=== PATIENT | female | born 2000 | race Caucasian/White ===

== ENCOUNTER 2022-05-22 12:07 | Observation (INO) ==
[2022-05-22] MEDS ORDERED: SODIUM CHLORIDE 0.9% 1000ML 1,000 ML IV ONE (12:37)
[2022-05-22] MEDS ORDERED: HYDROmorphone INJ 1 MG/ML SYRINGE IV STA (12:40)
--- NOTE | 2022-05-22 13:00 | Emergency Department Note ---
History of Present Illness General Chief complaint: Flank Pain Stated complaint: R SIDE KIDNEY PAIN/HERE ON THE WORSE Time Seen by Provider: 05/22/22 12:22 History of Present Illness Maximum Pain Intensity: 5 This is a 22-year-old female with a history of anxiety, endometriosis, kidney stones, recently diagnosed with a 3 mm obstructing stone at the right UVJ on 05/15/2022 presents with ongoing flank pain, nausea, and vomiting. Her pain continues to be located in the right flank area and now will sometimes radiate down around into her groin but most of the time it stays at the right flank. She has been taking oxycodone and Zofran as prescribed but cannot make it through a shift at work because the pain becomes too severe that she begins vomiting from the pain so she has to leave so she can take an oxycodone. She is trying to take Tylenol and ibuprofen at work. She does not feel the oxycodone makes her nauseous and vomit. Sometimes she feels so ill that she might pass out. She has dysuria now, and also describes some thick white discharge similar to yeast infections that she has had in the past. She has been taking the cefdinir as prescribed. She is feeling very anxious and upset because her symptoms have been ongoing for so long. She was unable to schedule an appointment with urology since being diagnosed with the stone. She has an appointment scheduled with her primary care provider 2 days from now, but has not followed up with them yet. She denies any fevers, chills, body aches, cough, shortness of breath, chest pain, hematuria. Home Medications Medication Instructions Recorded Confirmed Type medroxyprogesterone 150 mg/mL 150 mg IM UD #1 ml 06/11/21 05/22/22 Rx intramuscular suspension (Depo-Provera) cefdinir 300 mg capsule 300 mg PO BID 10 Days #20 cap 05/15/22 05/22/22 Rx ondansetron 4 mg disintegrating 4 mg PO Q4H PRN #8 tab 05/15/22 05/22/22 Rx tablet oxycodone 5 mg tablet 5 - 10 mg PO Q4H PRN #14 tab 05/15/22 05/22/22 Rx aripiprazole 5 mg tablet 5 mg PO QAM 05/22/22 05/22/22 History venlafaxine 150 mg 150 mg PO QAM 05/22/22 05/22/22 History capsule,extended release 24 hr Allergies Allergy/AdvReac Type Severity Reaction Status Date / Time latex Allergy Unknown TONGUE Verified 04/27/21 14:22 SWELLING Past Med/Surg History Medical History Adjustment disorder Anxiety Asthma WELL CONTROLLED Depression Endometriosis Endometriosis History of anesthesia reaction HX ASTHMA ATTACKS COMING OUT OF ANESTHESIA Nausea and vomiting after administration of anesthetic agent Recurrent streptococcal tonsillitis Scoliosis Tonsillith Surgical History History of adenoidectomy 2006 History of colonoscopy History of endoscopy History of laparoscopy FOR ENDOMETRIOSIS History of tonsillectomy 06/12/20 - Dr. Idris Ward Status post wisdom tooth extraction 2019 Family History Father Hypertension Allergies Asthma Anxiety Depression Grandfather (Paternal) Myocardial infarction Mother Anxiety Sister Anxiety Brother Anxiety Denies family history of Ovarian cancer Prostate cancer Breast cancer Colorectal cancer Social History Smoking Status: Never smoker Second Hand Exposure: No; Hx Alcohol Use: Yes Alcohol type: wine Alcohol Intake Frequency: 4 or More x per/Week Alcohol Intake Frequency Comment: socially - 1-2 nights per week Hx Substance Use: No Preferred Language: [place] Communication Ability: Effective Tumbler Operator Required: No Beliefs That Will Affect Care: None marital status: Single Current Living Situation: Alone current occupational status: employed 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 and A total of 10 systems reviewed and were otherwise negative Physical Exam Vital Signs Vital Signs - 24 hr 05/22/22 12:09 05/22/22 13:11 05/22/22 13:12 Temperature 98.2 F Temperature Source Temporal Artery Scan Pulse Rate 131 H Pulse Rate [Right Finger] 112 H Respiratory Rate 18 20 Respiratory Effort / Characteristics Non-Labored Respiratory Depth Normal Blood Pressure 98/63 L Blood Pressure [Right Arm] 100/68 Blood Pressure Mean 74 Blood Pressure Mean [Right Arm] 78 Pulse Oximetry 99 100 100 Oxygen Delivery Method Room Air Room Air Room Air Sepsis Recent Fever Within 48 Hours No Sepsis New/Unexplained Change in Mental Status No Sepsis Action Taken by Nursing No Action Required CONSTITUTIONAL: Well developed, well nourished, appears in pain, tearful HEAD: Normocephalic, atraumatic. EYES: conjunctivae normal, extraocular muscles intact. ENMT: External ears normal. Nose with normal external appearance, no congestion. Oral mucous membranes dry. Oropharynx normal. NECK: Full active range of motion. RESPIRATORY: Breathing unlabored and symmetric. Lungs clear to auscultation bilaterally. No wheeze, rales, or rhonchi. CARDIOVASCULAR: tachycardic rate and regular rhythm. No murmurs, rubs, or gallops. ABDOMEN: Normal bowel sounds. Soft, nontender, no peritonitis. No masses. R CVA tenderness is present. MUSCULOSKELETAL: Moves all extremities at all joints without pain or difficulty. No cyanosis or edema. Back with full range of motion. SKIN: [place], warm, dry. No rash. NEUROLOGIC: Alert and oriented x 3. No acute motor or sensory deficits. Cranial nerves grossly intact. PSYCHIATRIC: Anxious, tearful, otherwise appropriate. Course Administered Medications Cefdinir (Cefdinir 300 Mg Cap) 300 mg PO BID [facility] Stop: 06/01/22 20:59 Last Admin: 05/22/22 20:10 Dose: 300 mg Documented by: [id number] Sodium Chloride (Nss 1000ml) 1,000 mls @ 80 mls/hr IV .[id number] [facility] Stop: 06/21/22 18:37 Last Admin: 05/22/22 18:51 Dose: 80 mls/hr Documented by: [id number] Ketorolac Tromethamine (Ketorolac Tromethamine 15 Mg/Ml Vial) 15 mg IV Q6H PRN PRN Reason: Moderate Pain Stop: 05/27/22 18:37 Last Admin: 05/22/22 18:51 Dose: 15 mg Documented by: [id number] Ondansetron HCl (Ondansetron Inj 2 Mg/Ml 2 Ml Vial) 4 mg IV NOW PRN PRN Reason: Nausea Stop: 06/21/22 12:36 Last Admin: 05/22/22 18:14 Dose: 4 mg Documented by: [id number] Admin: 05/22/22 13:19 Dose: 4 mg Documented by: [id number] Tamsulosin HCl (Tamsulosin Hcl 0.4 Mg Cap) 0.4 mg PO HS [facility] Stop: 06/21/22 20:59 Last Admin: 05/22/22 20:10 Dose: 0.4 mg Documented by: [id number] Discontinued Medications Hydromorphone HCl (Hydromorphone Inj 1 Mg/Ml Syringe) 1 mg IV NOW STA Stop: 05/22/22 12:41 Last Admin: 05/22/22 13:19 Dose: 1 mg Documented by: [id number] Sodium Chloride (Nss 1000ml) 1,000 mls @ 999 mls/hr IV .Q1H1M ONE Stop: 05/22/22 13:37 Last Infusion: 05/22/22 15:07 Dose: 0 mls/hr Documented by: [id number] Admin: 05/22/22 13:23 Dose: 999 mls/hr Documented by: [id number] Metoclopramide HCl (Metoclopramide Hcl Inj 5 Mg/Ml 2 Ml Vial) 5 mg IV ONE ONE Stop: 05/22/22 15:11 Last Admin: 05/22/22 15:19 Dose: 5 mg Documented by: [id number] Sumatriptan Succinate (Sumatriptan Succinate 50 Mg Tab) 50 mg PO NOW STA Stop: 05/22/22 17:11 Last Admin: 05/22/22 18:35 Dose: 50 mg Documented by: [id number] Medical Decision Making Differential Diagnosis Renal colic, pyelonephritis, UTI, yeast infection, urologic abnormality, intra- abdominal pathology, among other pathology Medical Records Attestation: I reviewed the patient's medical records. Laboratory Data Result diagrams: 05/22/22 13:13 05/22/22 13:13 Lab Results 05/22/22 05/22/22 05/22/22 Range/Units 13:13 13:13 14:59 WBC 4.95 (4.8-10.8) K/uL RBC 4.57 (4.2-5.4) M/uL Hgb 13.7 (12.0-16.0) g/dL Hct 40.2 (37-47) % MCV 88.0 (80-100) fL MCH 30.0 (25-34) pg MCHC 34.1 (32-36) g/dL RDW Std Deviation 38.8 (36.4-46.3) fL RDW Coeff of Emiliano 12.2 (11.5-14.5) % Plt Count 229 (130-400) K/uL MPV 10.4 (7.4-10.4) fL Immature Gran % (Auto) 0.2 % Neut % (Auto) 84.0 % Lymph % (Auto) 8.3 % [place] % (Auto) 7.1 % Eos % (Auto) 0.2 % Baso % (Auto) 0.2 % Neut # (Auto) 4.16 (1.4-6.5) K/uL Lymph # (Auto) 0.41 L (1.2-3.4) K/uL [place] # (Auto) 0.35 (0.11-0.59) K/uL Eos # (Auto) 0.01 (0-0.5) K/uL Baso # (Auto) 0.01 (0-0.2) K/uL Immature Gran # (Auto) 0.01 (0.00-0.02) K/uL Sodium 138 (136-145) mmol/L Potassium 3.6 (3.5-5.1) mmol/L Chloride 107 (98-107) mmol/L Carbon Dioxide 23 (21-32) mmol/L Anion Gap 8 (3-11) BUN 14 (6-23) mg/dl Creatinine 0.80 (0.6-1.2) mg/dl Est Cr Clr Drug Dosing 102.4 ml/min Est GFR ( Amer) 120.4 ml/min Est GFR (Non-Af Amer) 103.9 ml/min BUN/Creatinine Ratio 17.5 (10-20) Glucose 105 H (70-99(Fasting)) mg/dl Calcium 9.7 (8.5-10.1) mg/dl Total Bilirubin 0.6 (0.2-1.0) mg/dl AST 15 (13-39) U/L ALT 20 (7-52) U/L Alkaline Phosphatase 46 (34-104) U/L Total Protein 7.6 (6.0-8.3) gm/dl Albumin 4.6 (3.4-5.0) gm/dl Globulin 3.0 (2.5-4.0) gm/dl Albumin/Globulin Ratio 1.5 (0.9-2) Urine Color Yellow Urine Appearance Cloudy A (Clear) Urine pH 7.5 (4.5-7.5) Ur Specific [place] 1.015 (1.000-1.030) Urine Protein Negative (Negative) Urine Glucose (UA) Negative (Negative) Urine Ketones Trace H (Negative) Urine Blood Negative (Negative) Urine Nitrite Negative (Negative) Urine Bilirubin Negative (Negative) Urine Urobilinogen Negative (Negative) Ur Leukocyte Esterase 3+ H (Negative) Urine WBC (Auto) >30 H (0-5) /hpf Urine RBC (Auto) 0-4 (0-4) /hpf U Hyaline Cast (Auto) 1-5 (0-5) /lpf U Epithel Cells (Auto) >30 H (0-5) /lpf Urine Bacteria (Auto) 1+ H (Negative) Imaging Data Radiologist's Impression: KUB X-Ray 05/22/22 12:40 KUB CLINICAL HISTORY: hx 3mm stone R UVJ, ongoing pain COMPARISON STUDY: CT of the abdomen and pelvis 05/15/2022. FINDINGS: There is possible visualization of the 3 mm distal right ureteral calculus. Evaluation is difficult given overlying stool. No additional urinary calculi are present. Bowel gas pattern is normal. No evidence for a bowel obstruction. IMPRESSION: Possible visualization of the 3 mm distal right ureteral calculus. ACT 112: Negative or not required by law. Electronically signed by: Sergio Burnett M.D. 05/22/2022 1:29 PM Renal Ultrasound 05/22/22 12:40 RENAL ULTRASOUND CLINICAL HISTORY: 3mm stone R UVJ, ongoing pain COMPARISON STUDY: CT of the abdomen and pelvis May 15, 2022. KUB performed earlier today. TECHNIQUE: Sonography of the kidneys and the urinary bladder was performed. FINDINGS: Right kidney measures 11.8 cm in maximal dimension and the left measures 11.5 cm. Renal echogenicity, size and cortical thickness are normal. There is no hydronephrosis. No renal calculi are identified. Note is made of a 3 mm distal right ureteral calculus, as shown on prior CT and KUB. Ureteral jets were not visualized. IMPRESSION: 1. No hydronephrosis. 2. 3 mm distal right ureteral calculus. ACT 112: Negative or not required by law. Electronically signed by: Sergio Burnett M.D. 05/22/2022 2:44 PM MDM Narrative This is a 22-year-old female who returns to the emergency department with unco ntrolled right flank pain with associated nausea and vomiting secondary to a 3 mm obstructing stone diagnosed at the UVJ on 05/15/2022. On exam she is tachycardic and slightly hypotensive at 131 and 98/63 respectively. She is quite uncomfortable, tearful, anxious although is conversational and quite reasonable. She is afebrile. She persists with right CVA tenderness, although no abdominal tenderness is appreciated. It also sounds like she may have developed a yeast infection secondary to the c efdinir that she has been taking. Urine culture grew out lactobacillus so this is likely contamination. Will repeat labs and urinalysis, get pain under control, and obtain a KUB and ultrasound. Leukocytosis has improved to 4.95 from 11.84 from 1 week ago. Renal function is normal. Low suspicion that urine is infected. COVID-19 was found to be positive at time of admission. This may also be con tributing to the patient's symptoms of feeling so terribly. Her KUB and ultrasound are consistent with a persistent stone at the right UVJ. Case was discussed with Dr. Boyle who requests that the patient be admitted under medicine and they will manage the stone. He recommends continuing antibio tics. Case was discussed with Dr. Scales who agrees to admit the patient to medicine. Impression & Plan Calculus of distal right ureter, Nausea & vomiting, Uncontrolled pain, COVID-19 Discharge Plan Visit Data Chief Complaint: Flank Pain Stated Complaint: R SIDE KIDNEY PAIN/HERE ON THE WORSE ED Provider: Mega Darling ED Midlevel Provider: David Parr Discharge Problem: Calculus of distal right ureter, Nausea & vomiting, Uncontrolled pain, COVID-19 Patient Disposition: Admitted As Inpatient Condition: Fair Discharge Instructions Interventions: ED Discharge Assessment Last Done: 05/22/22 18:19
[2022-05-22] MEDS: ONDANSETRON INJ 2 MG/ML 2 ML VIAL IV PRN ×2 (13:19→18:14)
--- NOTE | 2022-05-22 13:31 | XRay Report ---
KUB CLINICAL HISTORY: hx 3mm stone R UVJ, ongoing pain COMPARISON STUDY: CT of the abdomen and pelvis 05/15/2022. FINDINGS: There is possible visualization of the 3 mm distal right ureteral calculus. Evaluation is d ifficult given overlying stool. No additional urinary calculi are present. Bowel gas pattern is lucrecia l. No evidence for a bowel obstruction. IMPRESSION: Possible visualization of the 3 mm distal right ureteral calculus. ACT 112: Negative or not required by law. Electronically signed by: Sergio Burnett M.D. 05/22/2022 1:29 PM
[2022-05-22 13:42] LABS: Albumin Globulin Ratio 1.5 (0.9-2); Albumin Level 4.6 gm/dl (3.4-5.0); BUN Creatinine Ratio 17.5 (10-20); Bilirubin,Total 0.6 mg/dl (0.2-1.0); Calcium 9.7 mg/dl (8.5-10.1); Creatinine Clr Calc Pharmacy 102.4 ml/min; Est GFR (African American) 120.4 ml/min; Est GFR (Non-African American) 103.9 ml/min; Potassium 3.6 mmol/L (3.5-5.1); Total Protein 7.6 gm/dl (6.0-8.3)
[2022-05-22 13:53] LABS: Basophils # (auto) 0.01 K/uL (0-0.2); Basophils % (auto) 0.2 %; Eosinophils # (auto) 0.01 K/uL (0-0.5); Eosinophils % (auto) 0.2 %; Hematocrit (blood only) 40.2 % (37-47); Hemoglobin 13.7 g/dL (12.0-16.0); Immature Granulocytes # (auto) 0.01 K/uL (0.00-0.02); Immature Granulocytes % (auto) 0.2 %; Lymphocytes # (auto) 0.41 K/uL (1.2-3.4); Lymphocytes % (auto) 8.3 %; Mean Corpuscular Hgb Conc 34.1 g/dL (32-36); Mean Platelet Volume 10.4 fL (7.4-10.4); Monocytes # (auto) 0.35 K/uL (0.11-0.59); Monocytes % (auto) 7.1 %; Neutrophils # (auto) 4.16 K/uL (1.4-6.5); Platelet Count 229 K/uL (130-400); RDW Coefficient of Variation 12.2 % (11.5-14.5); RDW Standard Deviation 38.8 fL (36.4-46.3); Red Blood Count 4.57 M/uL (4.2-5.4); White Blood Count 4.95 K/uL (4.8-10.8)
--- NOTE | 2022-05-22 14:45 | Ultrasound Report ---
RENAL ULTRASOUND CLINICAL HISTORY: 3mm stone R UVJ, ongoing pain COMPARISON STUDY: CT of the abdomen and pelvis May 15, 2022. KUB performed earlier today. TECHNIQUE: Sonography of the kidneys and the urinary bladder was performed. FINDINGS: Right kidney measures 11.8 cm in maximal dimension and the left measures 11.5 cm. Renal ech ogenicity, size and cortical thickness are normal. There is no hydronephrosis. No renal calculi are i dentified. Note is made of a 3 mm distal right ureteral calculus, as shown on prior CT and KUB. Urete ral jets were not visualized. IMPRESSION: 1. No hydronephrosis. 2. 3 mm distal right ureteral calculus. ACT 112: Negative or not required by law. Electronically signed by: Sergio Burnett M.D. 05/22/2022 2:44 PM
[2022-05-22] MEDS ORDERED: METOCLOPRAMIDE HCL INJ 5 MG/ML 2 ML VIAL IV ONE (15:10)
[2022-05-22 15:15] LABS: Appearance Urine Cloudy (Clear); Bacteria Urine Automated 1+ (Negative); Bilirubin Urine Negative (Negative); Blood Urine Negative (Negative); Color Urine Yellow; Epithelial Cell Urine Auto >30 /lpf (0-5); Glucose Urine UA Negative (Negative); Ketones Urine Trace (Negative); Leukocyte Esterase Urine 3+ (Negative); Nitrite Urine Negative (Negative); Protein Urine Negative (Negative); RBC Urine Automated 0-4 /hpf (0-4); Specific Gravity Urine 1.015 (1.000-1.030); Urobilinogen Urine Negative (Negative); WBC Urine Automated >30 /hpf (0-5); pH Urine 7.5 (4.5-7.5)
--- NOTE | 2022-05-22 16:49 | History & Physical Report ---
Date of Service May 22, 2022 Assessment & Plan (1) Kidney stone: Plan: 3 mm distal right ureteral calculus. - Without abscess, without fevers, normal WBC count - admission for pain control and symptom control - Pain control with- Tylenol, Toradol, Narcotic- for severe pain - Flomax 0.4mg HS - IVF - Continue cefdinir- prior UA with lactobacillus- repeated in EMD - Urology consulted (2) COVID-19: Plan: No known Covid contacts. No particular symptoms of upper respiratory infection or shortness of breath. - No particular treatment needed at this time given SpO2 100% and low risk (3) Nausea & vomiting: Plan: Secondary to pain response - Zofran for n/v - test pending (4) Migraine: Plan: Hx of migraines. Usually just takes Excedrin at home. Has tolerated her mother's nasal triptan in the past with good result though. - Sumatriptan 50 mg PO x 1 in the ER - Tylenol ordered PRN; sumatriptan x 1 further dose ordered (5) Depression: Plan: Continue Abilify Continue Effexor (6) Anxiety: Plan: As above History of Present Illness Primary Care Provider: Patrice Dawkins III, [employer] 22 YOF with medical history of: Asthma (well controlled hasn't used inhaler in years), Re-current renal stones, tonsillectomy and adenoidectomy, endometriosis, anxiety/depression. Patient comes to the EMD today for complaints of right sided flank pain, not controlled with oral oxy and re-current vomiting from pain. Patient was originally seen in the EMD 05/15 and diagnosed with kidney stone on the right side 3mm at UVJ with right sided hydronephrosis. She was also emperically placed on abx at that time. UA grew lactobacillus. Patient states that she has had kidney stones before multiple times and always occurs on the right side. She endorses that she had her first kidney stone when she was a child at age 6. She reports last kidney stone was apporx 10 years ago. She is normally able to pass these on her own. Now she is unable to go to to work because she can't complete a full shift without pain and then nausea and vomiting. Patient states that she had follow up with PCP coming up on Monday, and was unable to get appointment with Urology. Endorses that she has not been able to keep food down for the past 2-3 days. Patient will be admitted for pain control, IVF, Flomax will be initiated. Urology consult placed. COVID test on admission is: NEGATIVE Allergies Allergy/AdvReac Type Severity Reaction Status Date / Time latex Allergy Unknown TONGUE Verified 04/27/21 14:22 SWELLING Home Medications Medication Instructions Recorded Confirmed Type medroxyprogesterone 150 mg/mL 150 mg IM UD #1 ml 06/11/21 05/22/22 Rx intramuscular suspension (Depo-Provera) cefdinir 300 mg capsule 300 mg PO BID 10 Days #20 cap 05/15/22 05/22/22 Rx ondansetron 4 mg disintegrating 4 mg PO Q4H PRN #8 tab 05/15/22 05/22/22 Rx tablet oxycodone 5 mg tablet 5 - 10 mg PO Q4H PRN #14 tab 05/15/22 05/22/22 Rx aripiprazole 5 mg tablet 5 mg PO QAM 05/22/22 05/22/22 History venlafaxine 150 mg 150 mg PO QAM 05/22/22 05/22/22 History capsule,extended release 24 hr Past Med/Surg History Medical History Adjustment disorder Anxiety Asthma WELL CONTROLLED Depression Endometriosis Endometriosis History of anesthesia reaction HX ASTHMA ATTACKS COMING OUT OF ANESTHESIA Nausea and vomiting after administration of anesthetic agent Recurrent streptococcal tonsillitis Scoliosis Tonsillith Surgical History History of adenoidectomy 2006 History of colonoscopy History of endoscopy History of laparoscopy FOR ENDOMETRIOSIS History of tonsillectomy 06/12/20 - Dr. Idris Ward Status post wisdom tooth extraction 2019 Family History Father Hypertension Allergies Asthma Anxiety Depression Grandfather (Paternal) Myocardial infarction Mother Anxiety Sister Anxiety Brother Anxiety Denies family history of Ovarian cancer Prostate cancer Breast cancer Colorectal cancer Social History Smoking Status: Never smoker Second Hand Exposure: No; Hx Alcohol Use: Yes Alcohol type: wine Alcohol Intake Frequency: 4 or More x per/Week Alcohol Intake Frequency Comment: socially - 1-2 nights per week Hx Substance Use: No Preferred Language: Swedish Communication Ability: Effective Manager Training And Development Required: No Beliefs That Will Affect Care: None marital status: Single Current Living Situation: Alone current occupational status: employed 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 Feels Safe at Home: Yes Childhood Exposure to Second-Hand Smoke: Yes caffeine: Yes during the past year weight has: increased > 10 lbs Dental Care, Regularly: No Physical Activity Frequency: Does not Exercise Physical Activity Frequency Comment: just work Seatbelt Use: always Sunscreen Use: Yes Assistive Devices: Contacts and Glasses Review of Systems Review of Systems: REVIEW OF SYSTEMS: Constitutional: (+) chills, No fever, sweats Eyes: No diplopia, no worsening or blurred vision ENT: normal hearing, no trouble swallowing Respiratory: No cough, sputum, dyspnea at rest or on exertion Cardiovascular: No chest pain, tightness or palpitations Abdomen: (+) right flank pain, nausea, vomiting, No constipation Musculoskeletal: No joint pain, calf pain, swelling Neurologic: No weakness, numbness/tingling, or balance problems Psychiatric: No anxiety or depression Skin: No rash or itch Physical Exam Physical Exam: PHYSICAL EXAM: General: awake, alert, teary eyed from pain and vomiting Head: Normocephalic, atraumatic ENT: PERRLA, EOMI, no pharyngeal exudate, mucous membranes moist Neuro: AAO x 3, speech clear and appropriate, strength intact bilaterally 5/5, sensation intact and equal all extremities and dermatomes, no pronator drift Chest: equal rise and fall of the chest, no accessory muscle use, no heaves or thrills, Clear to auscultation, on room air, Cardiac: Regular rate and rhythm, telemetry reviewed, skin warm dry, cap refill <3 seconds, peripheral pulses +2 no JVD, no murmur, no edema GI: NABS x 4 quadrants, soft, nontender to palpation, no rebound, guarding or tenderness : Spontaneously voiding, pain with urination, pain on right flank with right sided CVA tenderness, suprapubic tenderness, Extremities: Normal inspection, no peripheral edema or erythema, calfs nontender to palpation Psych: Normal mood and affect Skin: no rash or erythema Results & Data Results & Data ([facility]) Vital Signs (Past 12 Hours) Vital Signs Temp Pulse Pulse Resp BP BP Pulse Ox 05/22/22 13:12 112 H 20 100/68 100 05/22/22 13:11 100 05/22/22 12:09 36.8 C 131 H 18 98/63 L 99 Laboratory Results Abnormal lab results 05/22/22 05/22/22 05/22/22 Range/Units 13:13 13:13 14:59 Lymph # (Auto) 0.41 L (1.2-3.4) K/uL Glucose 105 H (70-99(Fasting)) mg/dl Urine Appearance Cloudy A (Clear) Urine Ketones Trace H (Negative) Ur Leukocyte Esterase 3+ H (Negative) Urine WBC (Auto) >30 H (0-5) /hpf U Epithel Cells (Auto) >30 H (0-5) /lpf Urine Bacteria (Auto) 1+ H (Negative) Diagnostic Findings KUB X-Ray 05/22/22 12:40 KUB CLINICAL HISTORY: hx 3mm stone R UVJ, ongoing pain COMPARISON STUDY: CT of the abdomen and pelvis 05/15/2022. FINDINGS: There is possible visualization of the 3 mm distal right ureteral calculus. Evaluation is difficult given overlying stool. No additional urinary calculi are present. Bowel gas pattern is normal. No evidence for a bowel obstruction. IMPRESSION: Possible visualization of the 3 mm distal right ureteral calculus. ACT 112: Negative or not required by law. Electronically signed by: Sergio Burnett M.D. 05/22/2022 1:29 PM Renal Ultrasound 05/22/22 12:40 RENAL ULTRASOUND CLINICAL HISTORY: 3mm stone R UVJ, ongoing pain COMPARISON STUDY: CT of the abdomen and pelvis May 15, 2022. KUB performed earlier today. TECHNIQUE: Sonography of the kidneys and the urinary bladder was performed. FINDINGS: Right kidney measures 11.8 cm in maximal dimension and the left measures 11.5 cm. Renal echogenicity, size and cortical thickness are normal. There is no hydronephrosis. No renal calculi are identified. Note is made of a 3 mm distal right ureteral calculus, as shown on prior CT and KUB. Ureteral jets were not visualized. IMPRESSION: 1. No hydronephrosis. 2. 3 mm distal right ureteral calculus. ACT 112: Negative or not required by law. Electronically signed by: Sergio Burnett M.D. 05/22/2022 2:44 PM Medications Administered Home Medications medroxyprogesterone 150 mg/mL intramuscular suspension (Depo-Provera) 150 mg IM UD #1 ml 06/11/21 [Rx Confirmed 05/22/22] cefdinir 300 mg capsule 300 mg PO BID 10 Days #20 cap 05/15/22 [Rx Confirmed 05/22/22] ondansetron 4 mg disintegrating tablet 4 mg PO Q4H PRN #8 tab 05/15/22 [Rx Confirmed 05/22/22] oxycodone 5 mg tablet 5 - 10 mg PO Q4H PRN #14 tab 05/15/22 [Rx Confirmed 05/22/22] aripiprazole 5 mg tablet 5 mg PO QAM 05/22/22 [History Confirmed 05/22/22] venlafaxine 150 mg capsule,extended release 24 hr 150 mg PO QAM 05/22/22 [History Confirmed 05/22/22] Active Medications Ondansetron HCl (Ondansetron Inj 2 Mg/Ml 2 Ml Vial) 4 mg IV NOW PRN PRN Reason: Nausea Stop: 06/21/22 12:36 Last Admin: 05/22/22 13:19 Dose: 4 mg Documented by: ECG Additional Comments: none obtained Code Status & VTE Plan Code Status CODE: FULL VTE: SCDS, ambulation VTE Prophylaxis Plan VTE Prophylaxis will be ordered: Yes PG Care Time/CCT Total # of Minutes Spent Total Time Spent with Patient: Total time spent is greater than 50% in coordination of care (as documented) at patient's floor/unit and/or counseling patient: Coding Level of Care Code INT OBSERVATION CARE 70M LVL 3 Diagnoses Nausea & vomiting R11.2 Kidney stone N20.0 Depression F32.9 Anxiety F41.9 COVID-19 U07.1 Migraine G43.909
[2022-05-22] MEDS ORDERED: SUMAtriptan succinate 50 MG TAB PO STA (17:10)
[2022-05-22] MEDS ORDERED: SUMAtriptan succinate 50 MG TAB PO PRN (17:19)
[2022-05-22] MEDS ORDERED: ONDANSETRON INJ 2 MG/ML 2 ML VIAL IV PRN (18:38)
[2022-05-22] MEDS ORDERED: ACETAMINOPHEN 325 MG TAB PO PRN (18:38)
[2022-05-22] MEDS ORDERED: MoRPHine SULFATE 4 MG/ML 1 ML CARP\\VIAL IV PRN (18:38)
[2022-05-22] MEDS: KETOROLAC TROMETHAMINE 15 MG/ML VIAL IV PRN (18:51)
[2022-05-22] MEDS: SODIUM CHLORIDE 0.9% 1000ML 1,000 ML IV SCH (18:51)
[2022-05-22] MEDS: TAMSULOSIN HCL 0.4 MG CAP PO SCH (20:10)
[2022-05-22] MEDS: CEFDINIR 300 MG CAP PO SCH (20:10)
[2022-05-23] MEDS ORDERED: MELATONIN 3 MG TAB PO PRN (01:47)
[2022-05-23] MEDS ORDERED: FLUTICASONE PROPIONATE NA SPR 16 GM BTL NAE ONE (01:48)
[2022-05-23] MEDS: KETOROLAC TROMETHAMINE 15 MG/ML VIAL IV PRN ×2 (05:04→22:40)
[2022-05-23] MEDS: SODIUM CHLORIDE 0.9% 1000ML 1,000 ML IV SCH ×2 (05:05→17:36)
[2022-05-23 06:08] LABS: Hematocrit (blood only) 36.2 % (37-47); Mean Corpuscular Hemoglobin 29.6 pg (25-34); Mean Corpuscular Hgb Conc 33.1 g/dL (32-36); Mean Corpuscular Volume 89.2 fL (80-100); Mean Platelet Volume 10.4 fL (7.4-10.4); Platelet Count 178 K/uL (130-400); RDW Standard Deviation 39.1 fL (36.4-46.3); Red Blood Count 4.06 M/uL (4.2-5.4); White Blood Count 5.42 K/uL (4.8-10.8)
[2022-05-23 06:18] LABS: BUN Creatinine Ratio 16.4 (10-20); Calcium 8.1 mg/dl (8.5-10.1); Creatinine Clr Calc Pharmacy 122.3 ml/min; Est GFR (African American) 143.6 ml/min; Est GFR (Non-African American) 123.9 ml/min; Magnesium 1.9 mg/dl (1.7-2.4); Potassium 3.5 mmol/L (3.5-5.1)
--- NOTE | 2022-05-23 06:42 | Urology Consultation ---
Date of Consultation May 23, 2022 Assessment & Plan (1) Kidney stone: Distal right ureteral calculus -highly symptomatic -plan for intervention, however, her COVID positive status makes the logistics of a holiday surgery quite challenging. - I valentina plan to add her to the schedule for tomorrow when we return to full staffing - cont IVF, toradol, narcotics, trial of passage - no WBC - Cr normal - ok to eat now, NPO p MN -cysto, right ureteral stent, possible ureteroscopy, laserlithotripsy History of Present Illness Attending Physician: Bakari Scales MD History of Present Illness 22y/o female with a distal right ureteral stone who returned to the ER last evening after an unsuccessful attempt at home passage of the stone -severe N/V -persistent pain - no fevers -no prior stone surgery - but has passed stones in the past - unfortunately, she has tested positive for COVID despite a lack of typical COVID related symptoms Allergies Allergy/AdvReac Type Severity Reaction Status Date / Time latex Allergy Unknown TONGUE Verified 04/27/21 14:22 SWELLING Home Medications Medication Instructions Recorded Confirmed Type medroxyprogesterone 150 mg/mL 150 mg IM UD #1 ml 06/11/21 05/22/22 Rx intramuscular suspension (Depo-Provera) cefdinir 300 mg capsule 300 mg PO BID 10 Days #20 cap 05/15/22 05/22/22 Rx ondansetron 4 mg disintegrating 4 mg PO Q4H PRN #8 tab 05/15/22 05/22/22 Rx tablet oxycodone 5 mg tablet 5 - 10 mg PO Q4H PRN #14 tab 05/15/22 05/22/22 Rx aripiprazole 5 mg tablet 5 mg PO QAM 05/22/22 05/22/22 History venlafaxine 150 mg 150 mg PO QAM 05/22/22 05/22/22 History capsule,extended release 24 hr Patient History Medical History Adjustment disorder Anxiety Asthma WELL CONTROLLED Depression Endometriosis Endometriosis History of anesthesia reaction HX ASTHMA ATTACKS COMING OUT OF ANESTHESIA Nausea and vomiting after administration of anesthetic agent Recurrent streptococcal tonsillitis Scoliosis Tonsillith Surgical History History of adenoidectomy 2007 History of colonoscopy History of endoscopy History of laparoscopy FOR ENDOMETRIOSIS History of tonsillectomy 06/12/20 - Dr. Idris Ward Status post wisdom tooth extraction 2019 Family History Father Hypertension Allergies Asthma Anxiety Depression Grandfather (Paternal) Myocardial infarction Mother Anxiety Sister Anxiety Brother Anxiety Denies family history of Ovarian cancer Prostate cancer Breast cancer Colorectal cancer Social History Smoking Status: Never smoker Second Hand Exposure: No; Hx Alcohol Use: Yes Alcohol type: wine Alcohol Intake Frequency: 4 or More x per/Week Alcohol Intake Frequency Comment: socially - 1-2 nights per week Hx Substance Use: No Preferred Language: Nepalese Communication Ability: Effective Compensation Expert Required: No Beliefs That Will Affect Care: None marital status: Single Current Living Situation: Alone current occupational status: employed 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 Feels Safe at Home: Yes Childhood Exposure to Second-Hand Smoke: Yes caffeine: Yes during the past year weight has: increased > 10 lbs Dental Care, Regularly: No Physical Activity Frequency: Does not Exercise Physical Activity Frequency Comment: just work Seatbelt Use: always Sunscreen Use: Yes Assistive Devices: Contacts Review of Systems Constitutional: no fever, no chills and no fatigue Eyes: no worsening vision Ear, Nose, Mouth, Throat: no facial pain and no pain with swallowing Respiratory: no cough and no dyspnea Cardiovascular: no chest pain and no palpitations Gastrointestinal: + abdominal pain, + nausea and + vomiting Genitourinary: as per Subjective / HPI Musculoskeletal: no back pain Integumentary: no rash and no urticaria Neurologic: no gait abnormality and no unsteadiness Psychiatric: no behavioral changes and no depression Endocrine: no fatigue Physical Exam Constitutional: well developed and well nourished Neck: neck nontender Respiratory: normal respiratory effort; no respiratory distress and does not use accessory muscles Cardiovascular: Rate/Rhythm: regular rate Vessels: radial pulses present Extremities: no edema Gastrointestinal (Abdomen): Inspection/Auscultation: abdomen normal to inspec tion Percussion/Palpation: abdomen soft; abdomen nontender and no guarding Musculoskeletal: Head/Neck/Chest: normocephalic and head atraumatic Extremities: extremities normal to inspection Skin: no rashes and no lesions Trauma: no evidence of skin trauma Neurologic: awake; not obtunded Speech / Cognition: normal speech Motor/Sensory: no tremor Psychiatric: Orientation: alert and oriented x 3 Lymphatic: no lymphadenopathy Results & Data ([facility]) Vital Signs (Past 12 Hours) Vital Signs Temp Pulse Resp BP Pulse Ox 05/22/22 20:11 37.1 C 96 H 16 97/67 L 96 PG Care Time/CCT Total # of Minutes Spent Total Time Spent with Patient: Total time spent is greater than 50% in coordination of care (as documented) at patient's floor/unit and/or counseling patient: Coding Level of Care Code 88312 Inpt Consult Level 4 Diagnoses Kidney stone N20.0
--- NOTE | 2022-05-23 07:58 | Hospitalist Progress Note ---
Date of Service May 23, 2022 Assessment & Plan (1) Calculus of distal right ureter: (2) COVID-19: (3) Nausea & vomiting: (4) Migraine: (5) Depression: (6) Anxiety: Plan: Tesha is a 22 y/o w/ PmHx of Asthma (well controlled hasn't used inhaler in years), Re-current renal stones, tonsillectomy and adenoidectomy, endometriosis, anxiety/depression with R distal ureteral kidney stone. Calculus of distal R Ureter: -CT from 05/15 w/ evidence of 3mm stone at right UVJ w/ hydronephrosis. -05/22 KUB and Renal US w/ evidence of 3mm R distal ureteral stone, US w/o evidence of hydronephrosis. -Prior urine culture with lactobacillus, repeat culture ordered -Patient afebrile, tachycardic, MAPs maintained - not septic at this time. -Urology consulted: -Continue IVF, toradol, narcotics for pain w/ trial of passage -Plan for intervention tomorrow, NPO midnight. -Continue cefdinir regimen, zofran for nausea, Tylenol, toradol, morphine PRN for pain. COVID-19: -COVID-19+ on admission, afebrile, saturating well on RA. -Flonase 27.5mcg q24h PRN for congestion. -Continue supportive care as above. Nausea/Vomiting: -Qualitative bHCG negative -Zofran PRN Migraine: -History of migraine gets once a week. -Tolerated mothers triptan nasal spray well in past. Usually treats migraines with Excedrin at home. -If migraine, may give Tylenol/Excedrin PRN. Depression/Anxiety: -Continue home Effexor, Abilify. DVT: SCDs F/E/N/GI: Regular diet, NPO midnight. Code Status: Full Code Dispo: Med/Surg. Admission and Anticipated Discharge Date Admission Date: May 22, 2022 Supervising Physician Co-Signing Physician Notes I personally examined the patient and verified all echols points of history and exam, discussed case, and agree with decision making with Dr Perkins Still with some nausea. For cystoscopy tomorrow. Vitals noted. Laying in a dark room on her side appearing mildly nauseated. HEENT normocephalic atraumatic mucous membranes moist. Breathing unlabored no accessory muscle use good effort. Skin shows no rashes no pallor or icterus. Neuro without focal deficits. Quite symptomatic ureterolithiasis with nearly intractable nausea and vomitingnow improved some, but for cystoscopy and stenting tomorrow, still having a fair amount of nauseatherefore ongoing hospital management seems quite reasonable until the pressure can be alleviated. Continue current care otherwise. Otherwise as above Subjective Patient seen at the bedside today resting comfortably in bed. She still endorses some flank tenderness and states she had developed congestion this morning. She received Flonase earlier in the day which had some good relief of symptoms. Review of Systems Constitutional: as per Subjective / HPI Physical Exam Constitutional: WD/WN, vitals as above Eyes: PERRL, conjunctivae normal, anicteric sclerae Respiratory: normal respiratory effort, lungs clear to auscultation Cardiovascular: RRR, no murmur, no edema Gastrointestinal (Abdomen): normal bowel sounds, soft, nontender, no hepatosplenomegaly Psychiatric: A+Ox3, euthymic affect Genitourinary: mild CVA tenderness on the right. No CVA tenderness on left. Results & Data Results & Data ([facility]) Vital Signs (Past 12 Hours) Vital Signs Temp Pulse Resp BP Pulse Ox 05/22/22 20:11 37.1 C 96 H 16 97/67 L 96 Resident Activity Tracking Resident Involvement: Resident Care Provided Care Provided: Adult [place]
[2022-05-23] MEDS: CEFDINIR 300 MG CAP PO SCH ×2 (09:31→20:25)
[2022-05-23] MEDS: ARIPiprazole 5 MG TAB PO SCH (09:31)
[2022-05-23] MEDS: VENLAFAXINE HCL XR 150 MG CAPXR PO SCH (09:31)
[2022-05-23] MEDS: ONDANSETRON INJ 2 MG/ML 2 ML VIAL IV PRN (12:48)
--- NOTE | 2022-05-23 17:53 | Billing Data ---
Date of Service May 23, 2022 Coding Level of Care Code 64345 Subseq Obs Care Lvl 2
[2022-05-23] MEDS ORDERED: FLUTICASONE PROPIONATE NA SPR 16 GM BTL NAE PRN (19:59)
[2022-05-23] MEDS: TAMSULOSIN HCL 0.4 MG CAP PO SCH (20:25)
[2022-05-24] MEDS: SODIUM CHLORIDE 0.9% 1000ML 1,000 ML IV SCH (05:46)
[2022-05-24 06:32] LABS: Hematocrit (blood only) 38.2 % (37-47); Hemoglobin 12.9 g/dL (12.0-16.0); Mean Corpuscular Hemoglobin 30.1 pg (25-34); Mean Corpuscular Hgb Conc 33.8 g/dL (32-36); Mean Platelet Volume 10.4 fL (7.4-10.4); Platelet Count 176 K/uL (130-400); RDW Coefficient of Variation 12.2 % (11.5-14.5); RDW Standard Deviation 39.5 fL (36.4-46.3); Red Blood Count 4.29 M/uL (4.2-5.4); White Blood Count 5.31 K/uL (4.8-10.8)
[2022-05-24 07:03] LABS: Calcium 8.4 mg/dl (8.5-10.1); Creatinine Clr Calc Pharmacy 136.5 ml/min; Est GFR (African American) 148.9 ml/min; Est GFR (Non-African American) 128.5 ml/min; Potassium 3.7 mmol/L (3.5-5.1)
--- NOTE | 2022-05-24 07:34 | Anesthesiology Consultation ---
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 History Surgery Operation Date: 05/24/22 07:00 Proposed Procedures p Cystoscopy Right Stent Placement Possible Ureteroscopy - Yan Boyle MD Height/Weight Height: 5 ft 6 in Weight: 62.5 kg Allergies Allergy/AdvReac Type Severity Reaction Status Date / Time latex Allergy Unknown TONGUE Verified 04/27/21 14:22 SWELLING Medications Home Medications Medication Instructions Recorded Confirmed Last Taken medroxyprogesterone 150 mg/mL 150 mg IM UD #1 ml 06/11/21 05/22/22 Unknown intramuscular suspension (Depo-Provera) cefdinir 300 mg capsule 300 mg PO BID 10 Days #20 cap 05/15/22 05/22/22 Unknown ondansetron 4 mg disintegrating 4 mg PO Q4H PRN #8 tab 05/15/22 05/22/22 Unknown tablet oxycodone 5 mg tablet 5 - 10 mg PO Q4H PRN #14 tab 05/15/22 05/22/22 Unknown aripiprazole 5 mg tablet 5 mg PO QAM 05/22/22 05/22/22 Unknown venlafaxine 150 mg 150 mg PO QAM 05/22/22 05/22/22 Unknown capsule,extended release 24 hr Active Medications Generic Name Dose Route Start Last Admin Trade Name Freq PRN Reason Stop Dose Admin Aripiprazole 5 mg 05/23/22 09:00 05/23/22 09:31 Aripiprazole 5 Mg Tab PO 06/22/22 08:59 5 mg QAM ALEXIS Administration Cefdinir 300 mg 05/22/22 21:00 05/23/22 20:25 Cefdinir 300 Mg Cap PO 06/01/22 20:59 300 mg BID ALEXIS Administration Fluticasone Propionate 1 sprays 05/23/22 19:59 05/23/22 22:41 Fluticasone Propionate Na Spr 16 Gm Btl ADAMA 06/22/22 19:59 1 sprays Q12H PRN Administration Allergy Symptoms Sodium Chloride 1,000 mls @ 80 mls/hr 05/22/22 18:38 05/24/22 05:46 Nss 1000ml IV 06/21/22 18:37 80 mls/hr .[id number] ALEXIS Administration Ketorolac Tromethamine 15 mg 05/22/22 18:38 05/23/22 22:40 Ketorolac Tromethamine 15 Mg/Ml Vial IV 05/27/22 18:37 15 mg Q6H PRN Administration Moderate Pain Melatonin 3 mg 05/23/22 01:47 05/23/22 02:16 Melatonin 3 Mg Tab PO 06/22/22 01:46 3 mg HS PRN Administration Sleep Ondansetron HCl 4 mg 05/22/22 12:37 05/23/22 12:48 Ondansetron Inj 2 Mg/Ml 2 Ml Vial IV 06/21/22 12:36 4 mg NOW PRN Administration Nausea Ondansetron HCl 4 mg 05/22/22 18:38 05/23/22 05:05 Ondansetron Inj 2 Mg/Ml 2 Ml Vial IV 06/21/22 18:37 4 mg Q4H PRN Administration Nausea Tamsulosin HCl 0.4 mg 05/22/22 21:00 05/23/22 20:25 Tamsulosin Hcl 0.4 Mg Cap PO 06/21/22 20:59 0.4 mg HS ALEXIS Administration Venlafaxine HCl 150 mg 05/23/22 09:00 05/23/22 09:31 Venlafaxine Hcl Xr 150 Mg Capxr PO 06/22/22 08:59 150 mg QAM ALEXIS Administration Past Medical History Medical History Adjustment disorder Anxiety Asthma WELL CONTROLLED Depression Endometriosis Endometriosis History of anesthesia reaction HX ASTHMA ATTACKS COMING OUT OF ANESTHESIA Nausea and vomiting after administration of anesthetic agent Recurrent streptococcal tonsillitis Scoliosis Tonsillith Past Family History Family History Father Hypertension Allergies Asthma Anxiety Depression Grandfather (Paternal) Myocardial infarction Mother Anxiety Sister Anxiety Brother Anxiety Denies family history of Ovarian cancer Prostate cancer Breast cancer Colorectal cancer Past Surgical History Surgical History History of adenoidectomy 2007 History of colonoscopy History of endoscopy History of laparoscopy FOR ENDOMETRIOSIS History of tonsillectomy 06/12/20 - Dr. Idris Ward Status post wisdom tooth extraction 2019 Social History Smoking Status: Never smoker Hx Alcohol Use: Yes Alcohol type: wine alcohol intake frequency: a few times a week Hx Substance Use: No substance use type: does not use Physical Exam Vital Signs Last Vital Signs Temp 98.4 F 05/23/22 22:35 Pulse 80 05/23/22 22:35 Resp 16 05/23/22 22:35 BP 97/63 L 05/23/22 22:35 Pulse Ox 98 05/23/22 22:35 Testing Laboratory Results 05/24/22 06:17 05/24/22 06:17 Urine Color Yellow 05/22/22 14:59 Urine Appearance Cloudy (Clear) A 05/22/22 14:59 Urine pH 7.5 (4.5-7.5) 05/22/22 14:59 Ur Specific [place] 1.015 (1.000-1.030) 05/22/22 14:59 Urine Protein Negative (Negative) 05/22/22 14:59 Urine Glucose (UA) Negative (Negative) 05/22/22 14:59 Urine Ketones Trace (Negative) H 05/22/22 14:59 Urine Nitrite Negative (Negative) 05/22/22 14:59 Ur Leukocyte Esterase 3+ (Negative) H 05/22/22 14:59 Urine WBC (Auto) >30 /hpf (0-5) H 05/22/22 14:59 Urine RBC (Auto) 0-4 /hpf (0-4) 05/22/22 14:59 U Hyaline Cast (Auto) 1-5 /lpf (0-5) 05/22/22 14:59 U Epithel Cells (Auto) >30 /lpf (0-5) H 05/22/22 14:59 Urine Bacteria (Auto) 1+ (Negative) H 05/22/22 14:59 05/22/22 14:59 Urine Culture - Preliminary Urine,Clean Catch Pin-point growth present, reincubating. 05/22/22 15:04 POC Ur Test Pending
[2022-05-24] MEDS ORDERED: PROPOFOL IV EMULSION 10 MG/ML 20 ML VIAL IV ONE (08:19)
[2022-05-24] MEDS ORDERED: fentaNYL citrate 100 MCG/2 ML VIAL ONE (08:20)
[2022-05-24] MEDS ORDERED: MIDAZOLAM HCL 1 MG/ML 2ML VIAL ONE (08:20)
[2022-05-24] MEDS ORDERED: DEXAMETHASONE SOD INJ 4 MG/ML VIAL ONE (08:31)
[2022-05-24] MEDS ORDERED: ONDANSETRON INJ 2 MG/ML 2 ML VIAL ONE (08:31)
[2022-05-24] MEDS ORDERED: KETOROLAC 30 MG/ML VIAL ONE (08:31)
--- NOTE | 2022-05-24 08:31 | Urology Progress Note ---
Date of Service May 24, 2022 Assessment & Plan (1) Calculus of distal right ureter: (2) Acute right flank pain: Plan: 22y/o female with a distal right ureteral stone admitted with intractable pain after an unsuccessful attempt at home passage of the stone. Pt also COVID19+ on admission. Still with right flank pain and nausea this morning, no stone passage noted. Afebrile, hemodynamically stable. Labs reviewed- No leukocytosis, renal function is normal. Urine culture preliminary with pinpoint growth, reincubating. Will plan to proceed to the OR today for cystoscopy, right ureteral stent placement, possible ureteroscopy, laser lithotripsy/stone treatment. Risks and benefits to be reviewed with patient by . OR notified. Will cover with IV Cipro preoperatively. Keep NPO. Continue supportive care and prn pain management. Will continue to follow. Admission and Anticipated Discharge Date Admission Date: May 22, 2022 Supervising Physician Co-Signing Physician Notes agree, plan for OR Subjective Patient examined at bedside this AM. Awake, resting in bed on arrival. Still with right flank pain this morning. No stone passage noted. Some nausea, no vomiting. Voiding without issue. No fevers. Has been NPO. Review of Systems Constitutional: as per Subjective / HPI Gastrointestinal: as per Subjective / HPI Genitourinary: as per Subjective / HPI Physical Exam Constitutional: no acute distress Respiratory: no respiratory distress and no labored breathing Gastrointestinal (Abdomen): Inspection/Auscultation: abdomen normal to inspection Neurologic: awake Psychiatric: Orientation: alert, oriented x 3 and cooperative Results & Data ([facility]) Vital Signs (Past 12 Hours) Vital Signs Temp Pulse Resp BP Pulse Ox 05/23/22 22:35 36.9 C 80 16 97/63 L 98 PG Care Time/CCT Total # of Minutes Spent Total Time Spent with Patient: Total time spent is greater than 50% in coordination of care (as documented) at patient's floor/unit and/or counseling patient: Coding Level of Care Code 21775 Subseq Hosp Care Lvl 2 Diagnoses Calculus of distal right ureter N20.1 Acute right flank pain R10.9
[2022-05-24] MEDS ORDERED: PROMETHAZINE HCL INJ 25 MG/ML 1 ML VIAL ONE (08:32)
[2022-05-24] MEDS ORDERED: ePHEDrine sulfate 50 MG/ML AMP IV PRN (08:48)
[2022-05-24] MEDS ORDERED: ATROPINE SULFATE 0.1 MG/ML 10ML SYR IV PRN (08:48)
[2022-05-24] MEDS ORDERED: ONDANSETRON INJ 2 MG/ML 2 ML VIAL IV PRN (08:48)
[2022-05-24] MEDS ORDERED: fentaNYL citrate 100 MCG/2 ML VIAL IV PRN (08:48)
[2022-05-24] MEDS ORDERED: CIPROFLOXACIN / D5W 400 MG/200 ML BAG IV SCH (08:55)
[2022-05-24 09:00] LABS: Pregnancy Test, Urine Negative (Negative)
--- NOTE | 2022-05-24 10:10 | Operative Report ---
PG Post Operative Report Pre & Post Diagnosis Operation Date: 05/24/22 07:00 Pre-Op Diagnosis: KIDNEY STONE - REFRACTORY PAIN Post-Op Diagnosis: KIDNEY STONE - REFRACTORY PAIN I identified the patient and participated in the time-out.: Yes Procedure Operation Date: 05/24/22 07:00 Actual Procedures p Cystoscopy Right Stent Placement, Ureteroscopy, Stone basketing and extraction(Right) - Yan Boyle MD Surgeon Yan Boyle MD Physician Scientist none Estimated Blood Loss 0 Findings Consistent with Post-Op Diagnosis Specimens Right ureteral stone for chemical analysis Description of Procedure The patient was identified in the preoperative holding area, appropriate informed consents were reviewed and completed and the patient was transferred to the operative suite. Upon arrival, appropriate antibiotics and anesthesia were administered and the patient was placed in dorsal lithotomy position and prepped and draped in sterile fashion. To begin the case I passed a 22 [place] cystoscope which revealed a healthy- appearing bladder and unremarkable mucosa. Her right UO was in orthotopic position and was cannulated with a sensor wire and a 5 [place] open-ended catheter. There was resistance in the distal ureter I was able to bypass this with the wire. There was an immediate discharge of urine after the wire b ypassed the obstruction. I then removed the cystoscope and 5 [place] open-ended catheter and reentered with a semirigid ureteroscope. I guided this into the distal ureter and encountered a stone approximately 2 cm above the UO. This was relatively round but clearly had been impacted into the wall of the ureter previously. I was able to use a basket to grasp the stone and easily withdraw without resistance. I reentered the ureter and confirm no other distal fragments. I placed a 6 [place] by 24 cm double-J stent with a string left attached to the distal end. This string was taped to her right inner thigh. She was reversed of anesthesia and taken to the recovery room in stable condition. There were no complications. I attest to the content of the Intraoperative Record and any orders documented therein. Any exceptions are noted below.
--- NOTE | 2022-05-24 10:13 | Fluoroscopy Report ---
FL KUB CLINICAL HISTORY: RIGHT STENT PLACEMENT TECHNIQUE: 2 views were obtained with the C-arm in the OR with the above procedure. Total fluoroscopy time was 3 seconds. Total skin dose was 0.44 mGy. Comparison: None available at the time of this dictation. FINDINGS/IMPRESSION: Intraoperative images were obtained of right stone extraction and stent placemen t. Please correlate with intraoperative fluoroscopy and operative report. ACT 112: Negative or not required by law. Electronically signed by: Truong Grossman M.D. 05/24/2022 10:12 AM
--- NOTE | 2022-05-24 10:27 | Anesthesiology Progress Note ---
Date of Service May 24, 2022 Anesthesia Post Procedure Vital Signs Vital Signs: Temp Pulse Pulse Resp BP Pulse Ox 05/24/22 10:15 98.6 F 74 14 102/63 98 05/24/22 10:05 75 14 102/59 L 97 05/24/22 09:59 97.5 F L 72 12 96/53 L 95 05/24/22 08:16 97.9 F 86 16 110/75 97 05/23/22 22:35 98.4 F 80 16 97/63 L 98 05/23/22 17:38 99.1 F 88 16 106/70 97 Pain Intensity Right Flank: Pain Intensity: 3 Transfer of Care Handoff Completed per policy Notes Mental Status: alert / awake / arousable and participated in evaluation Patient Amnestic to Procedure: Yes Nausea / Vomiting: adequately controlled Pain: adequately controlled Airway Patency, RR, SpO2: stable & adequate BP & HR: stable & adequate Hydration State: stable & adequate Anesthetic Complications: no major complications apparent and Pt Satisfied with anesthetic care
[2022-05-24] MEDS: CEFDINIR 300 MG CAP PO SCH (11:00)
[2022-05-24] MEDS: VENLAFAXINE HCL XR 150 MG CAPXR PO SCH (11:00)
[2022-05-24] MEDS: ARIPiprazole 5 MG TAB PO SCH (11:00)
--- NOTE | 2022-05-24 12:16 | Discharge Summary ---
Date of Service May 24, 2022 Admission HPI Per Admitting Provider 22 YOF with medical history of: Asthma (well controlled hasn't used inhaler in years), Re-current renal stones, tonsillectomy and adenoidectomy, endometriosis, anxiety/depression. Patient comes to the [facility] today for complaints of right sided flank pain, not controlled with oral oxy and re-current vomiting from pain. Patient was originally seen in the [facility] 05/15 and diagnosed with kidney stone on the right side 3mm at UVJ with right sided hydronephrosis. She was also emperically placed on abx at that time. UA grew lactobacillus. Patient states that she has had kidney stones before multiple times and always occurs on the right side. She endorses that she had her first kidney stone when she was a child at age 6. She reports last kidney stone was apporx 10 years ago. She is normally able to pass these on her own. Now she is unable to go to to work because she can't complete a full shift without pain and then nausea and vomiting. Patient states that she had follow up with PCP coming up on Monday, and was unable to get appointment with Urology. Endorses that she has not been able to keep food down for the past 2-3 days. Patient will be admitted for pain control, IVF, Flomax will be initiated. Urology consult placed. COVID test on admission is: NEGATIVE Admission Exam Per Admitting Provider General: awake, alert, teary eyed from pain and vomiting Head: Normocephalic, atraumatic ENT: PERRLA, EOMI, no pharyngeal exudate, mucous membranes moist Neuro: AAO x 3, speech clear and appropriate, strength intact bilaterally 5/5, sensation intact and equal all extremities and dermatomes, no pronator drift Chest: equal rise and fall of the chest, no accessory muscle use, no heaves or thrills, Clear to auscultation, on room air, Cardiac: Regular rate and rhythm, telemetry reviewed, skin warm dry, cap refill <3 seconds, peripheral pulses +2 no JVD, no murmur, no edema GI: NABS x 4 quadrants, soft, nontender to palpation, no rebound, guarding or tenderness : Spontaneously voiding, pain with urination, pain on right flank with right sided CVA tenderness, suprapubic tenderness, Extremities: Normal inspection, no peripheral edema or erythema, calfs nontender to palpation Psych: Normal mood and affect Skin: no rash or erythema Principal Diagnosis Nephrolithiasis Discharge Exam Attempted to see patient multiple times however patient was in OR cystoscopy. Discharge Data Allergies Allergy/AdvReac Type Severity Reaction Status Date / Time latex Allergy Unknown TONGUE Verified 04/27/21 14:22 SWELLING Consultations 05/22/22 16:50 ED Decision to Admit Stat 05/22/22 18:38 Consult Urology Routine Procedures Performed Operation Date: 05/24/22 07:00 Actual Procedures p Cystoscopy Right Stent Placement, Ureteroscopy, Stone basketing and extraction(Right) - Yan Boyle MD Ordered Studies 05/22/22 12:40 US renal/blad retro comp Stat IMPRESSION: 1. No hydronephrosis. 2. 3 mm distal right ureteral calculus. 05/24/22 FL KUB Routine IMPRESSION: Possible visualization of the 3 mm distal right ureteral calculus. Hospital Course (1) Calculus of distal right ureter: (2) COVID-19: (3) Nausea & vomiting: (4) Migraine: (5) Depression: (6) Anxiety: Tesha is a 22 y/o w/ PmHx of Asthma (well controlled hasn't used inhaler in years), Re-current renal stones, tonsillectomy and adenoidectomy, endometriosis, anxiety/depression with R distal ureteral kidney stone. Calculus of distal R Ureter: -CT from 05/15 w/ evidence of 3mm stone at right UVJ w/ hydronephrosis. -05/22 KUB and Renal US w/ evidence of 3mm R distal ureteral stone, US w/o evidence of hydronephrosis. -Prior urine culture with lactobacillus, repeat culture with probable skin светлана. -Patient afebrile, tachycardic, MAPs maintained - not septic at time of discharge -Urology consulted: -Cysto w/ removal of 3mm stone and stent placed. -Follow up with urology in 1-2 weeks. -Finish cefdinir regimen from previous ED visit for home. COVID-19: -COVID-19+ on admission, afebrile, saturating well on RA. -Improved with Flonase. -No need for further treatment. Total Time Total Time Spent Total Time Spent (In Minutes): Please see attending attestation. Discharge Plan Discharge Items Patient Disposition: Home - Self-Care Reason For Visit: KIDNEY STONE - REFRACTORY PAIN Discharge Diagnosis: kidney stone; covid 19 Condition on Discharge: Fair Activity: Resume your previous activity Lifting: Gradually increase as tolerated Bathing: No limitations Sexual Activity: When tolerated Exercise/Sports: Gradually increase as tolerated Driving/Machine Use: Resume 1 day after discharge Non-emergency contact: Urologist Call non-emergency contact if: you have any medication questions, your pain is not controlled, your pain is unusual for you, you have a fever and your temperature is above 101.5 Follow-up/Referrals: Patrice Dawkins III, CRNP [Primary Care Provider] - Yan Boyle MD [Physician] - 05/25/22 9:45 am Diet: Regular Addtl Attending Provider Instructions: Please come to Dr. Boyle's office tomorrow (05/25/22) at [address] at 9:45 to have your stent removed. Please wear a mask to that appointment. Please take all medications as prescribed and keep all follow-ups as scheduled. Please call our office at [phone] with any questions, concerns or need to reschedule appointments for any reason. We are happy to assist you. While you have a ureteral stent in place: Some discomfort is normal. Certain movements may trigger pain or a feeling that you need to urinate. You may also feel mild soreness or pressure before or during urination. These symptoms should go away a few days after the stent is removed. Your urine may be slightly pink or red. This is due to bleeding caused by minor irritation from the stent. This may happen on and off while you have the stent, it is not harmful and is to be expected. Medication to help minimize discomfort or bladder spasms, or to prevent infection may be prescribed. Take this as directed. Drink plenty of fluids to help flush out your urinary tract. If you go home with a catheter, wash with soapy water and a fresh washcloth twice daily. We recommend mild bar soap such as Dial or Dove. How long will you need a stent? An appointment should already be made for you for stent removal, unless directed otherwise. The stent is often taken out after the blockage in the ureter is treated or the ureter has healed. This may take 1-2 weeks, or longer. If a stent is needed for a longer period of time, it may need to be exchanged every few months. Likely prior to your followup appointment you will be asked to get an X-ray, please complete this the night before or morning of your appointment. When to call [facility] at [phone]: Your urine contains heavy blood clots You are constantly leaking urine Fever of 101F or higher, chills, nausea, or vomiting Your pain is not relieved with medication The end of the stent comes out of your urethra Pending Studies at Discharge: No Stand-Alone Forms: My [facility] MeetLinkshare, Work/School Release, Smoking Cessation Medications and DC Order Prescriptions: Continued medroxyprogesterone [Depo-Provera] 150 mg/mL suspension 150 mg IM UD Qty: 1 RF: 3 ondansetron 4 mg tablet,disintegrating 4 mg PO Q4H PRN (Reason: nausea and vomiting) Qty: 8 RF: 0 cefdinir 300 mg capsule 300 mg PO BID 10 Days Qty: 20 RF: 0 oxycodone 5 mg tablet 5 - 10 mg PO Q4H PRN (Reason: pain) Qty: 14 RF: 0 venlafaxine 150 mg capsule,extended release 24hr 150 mg PO QAM RF: 0 aripiprazole 5 mg tablet 5 mg PO QAM RF: 0 Discharge Orders: Discharge Order (Routine); Ordered 05/24/22 Ordered By: Yan Boyle Admission Data Admit Date/Time: 05/22/22 16:25 Attending Provider: Dashawn Reeves Admit Provider: Bakari Scales Primary Care Provider: Patrice Dawkins III Other Providers: Bakari Scales ; Yan Boyle Other Interventions: Discharge Summary Assessment (RN) Last Done: 05/24/22 11:30 Supervising Physician Co-Signing Physician Notes I personally examined the patient and verified all echols points of history and exam, discussed case, and agree with decision making with Dr Perkins Some crampy lower abdominal pain post cystoscopy, but feels up to going home. Vitals noted. Laying in a dark room on her side appearing mildly nauseated. HEENT normocephalic atraumatic mucous membranes moist. Breathing unlabored no accessory muscle use good effort. Skin shows no rashes no pallor or icterus. Neuro without focal deficits. Quite symptomatic ureterolithiasis with nearly intractable nausea and vomitingnow improved post cystoscopy and stenting. Safe/stable for home, close outpatient follow-up with urology. Otherwise as above Resident Activity Tracking Resident Involvement: Resident Care Provided Care Provided: Adult [facility]
[2022-05-24] MEDS: KETOROLAC TROMETHAMINE 15 MG/ML VIAL IV PRN (12:39)
--- NOTE | 2022-05-24 18:58 | Billing Data ---
Date of Service May 24, 2022 Coding Level of Care Code 41821 OBS Care - Discharge
== END 2022-05-24 16:24 | disposition home or self-care (01) ==
LOC: ED 12:07 → 3W 12:07 → SUATTDRO 16:25 → 3W 18:19